=== PATIENT | male | born 1990 | race African-American/Black ===

== ENCOUNTER 2021-08-25 20:16 | Observation (INO) | payer OTHER ==
[2021-08-25] MEDS ORDERED: SODIUM CHLORIDE 0.9% 1,000 ML IV STA (20:35)
[2021-08-25] MEDS ORDERED: SODIUM CHLORIDE 0.9% 1,000 ML with THIAMINE 100 MG, FOLIC ACID 1 MG IV ONE ×3 (20:36)
--- NOTE | 2021-08-25 20:39 | ED ---
General Adult HPI - General Chief complaint: Alcohol Stated complaint: ETOH Time Seen by Provider: 08/25/21 20:30 Source: EMS, RN notes reviewed, old records reviewed Mode of arrival: EMS Limitations: altered mental status (Patient intoxicated and obtunded) - History of Present Illness Initial comments: Patient brought in by EMS for acute alochol intoxication. Patient is arousable but obtunded. He does open his eyes on command. He is moving all extremities. Vital signs are stable. There is vomitus on his T-shirt. There is no evidence of trauma to his head. Per EMS patient is here on business and has been drinking heavily today. -: hour(s) Severity scale (1-10): 0 Associated Symptoms: denies other symptoms Treatments Prior to Arrival: other (iv) - Related Data Allergies Allergy/AdvReac Type Severity Reaction Status Date / Time Unable to Assess Allergy Verified 08/25/21 20:29 Review of Systems ROS Statement: Those systems with pertinent positive or pertinent negative responses have been documented in the HPI. ROS Other: All systems not noted in ROS Statement are negative. Past Medical History Past Medical History: Unable to Obtain History of Any Multi-Drug Resistant Organisms: Unobtainable Past Surgical History: Unable to Obtain Past Psychological History: Unable to Obtain Smoking Status: Unknown if ever smoked Past Alcohol Use History: Unable to Obtain Past Drug Use History: Unable to Obtain - Past Family History Mother Family Medical History: Unable to Obtain (due to mental status) General Exam Limitations: altered mental status General appearance: obtunded Head exam: Present: atraumatic, normocephalic, normal inspection Eye exam: Present: PERRL, other (Unable to assess extraocular eye movements). Absent: scleral icterus, conjunctival injection, periorbital swelling, periorbital tenderness ENT exam: Present: mucous membranes moist Neck exam: Present: normal inspection. Absent: tenderness Respiratory exam: Present: normal lung sounds bilaterally. Absent: respiratory distress, accessory muscle use Cardiovascular Exam: Present: regular rate, normal rhythm GI/Abdominal exam: Present: soft. Absent: distended, tenderness, rigid Extremities exam: Present: normal inspection, normal capillary refill. Absent: pedal edema Neurological exam: Present: other (Responsive to verbal stimuli) Expanded Patient oriented to: Present: person Cranial nerves: Gag Reflex: Normal Motor strength exam: RUE: 4, LUE: 5, RLE: 4, LLE: 5 Eye Response: (3) open to voice Motor Response: (6) obeys commands Verbal Response: (1) no verbal response Jonatan Total: 10 (Patient following simple commands) Skin exam: Present: warm, dry, normal color. Absent: cyanosis, diaphoretic, pallor Course Vital Signs 08/25/21 08/25/21 20:27 21:43 Temperature 98.2 F Pulse Rate 85 84 Respiratory 18 16 Rate Blood Pressure 116/80 106/76 O2 Sat by Pulse 94 L 97 Oximetry Medical Decision Making - Medical Decision Making 30-year-old male presents via EMS with acute alcohol intoxication. Patient is obtunded and is not answering questions. He is moving all 4 extremities, no evidence of trauma to the head. Alcohol level is 256, electrolytes are unremarkable, hemoglobin and hematocrit are stable. CT head negative for any mass or intracranial hemorrhage. I am unsure of the patient's medical history and whether his symptoms are solely related to his alcohol intoxication, he will be admitted to the hospital for acute alcohol intoxication and altered mental status. - Lab Data Result diagrams: 08/25/21 21:41 08/25/21 21:41 Lab Results 08/25/21 08/25/21 Range/Units 21:41 21:41 WBC 6.0 (3.8-10.6) k/uL RBC 4.71 (4.30-5.90) m/uL Hgb 14.0 (13.0-17.5) gm/dL Hct 43.8 (39.0-53.0) % MCV 93.1 (80.0-100.0) fL MCH 29.8 (25.0-35.0) pg MCHC 32.0 (31.0-37.0) g/dL RDW 12.0 (11.5-15.5) % Plt Count 204 (150-450) k/uL MPV 7.6 Neutrophils % 55 % Lymphocytes % 38 % Monocytes % 3 % Eosinophils % 2 % Basophils % 1 % Neutrophils # 3.3 (1.3-7.7) k/uL Lymphocytes # 2.3 (1.0-4.8) k/uL Monocytes # 0.2 (0-1.0) k/uL Eosinophils # 0.1 (0-0.7) k/uL Basophils # 0.1 (0-0.2) k/uL Sodium 140 (137-145) mmol/L Potassium 3.8 (3.5-5.1) mmol/L Chloride 105 (98-107) mmol/L Carbon Dioxide 25 (22-30) mmol/L Anion Gap 10 mmol/L BUN 14 (9-20) mg/dL Creatinine 1.00 (0.66-1.25) mg/dL Est GFR (CKD-EPI)AfAm >90 (>60 ml/min/1.73 sqM) Est GFR (CKD-EPI)NonAf >90 (>60 ml/min/1.73 sqM) Glucose 101 H (74-99) mg/dL Calcium 8.2 L (8.4-10.2) mg/dL Magnesium 2.0 (1.6-2.3) mg/dL Serum Alcohol 256 H* mg/dL Disposition Clinical Impression: Alcoholic intoxication, Altered mental status Disposition: ADMITTED IP TO THIS [facility] Decision Date: 08/25/21 Decision Time: 22:11
[2021-08-25 21:50] LABS: Basophils # (A) 0.1 k/uL (0-0.2); Basophils % (A) 1 %; Eosinophils # (A) 0.1 k/uL (0-0.7); Eosinophils % (A) 2 %; HCT 43.8 % (39.0-53.0); Lymphocytes # (A) 2.3 k/uL (1.0-4.8); Lymphocytes % (A) 38 %; MCH 29.8 pg (25.0-35.0); MCV 93.1 fL (80.0-100.0); Mean Platelet Volume 7.6; Monocytes # (A) 0.2 k/uL (0-1.0); Monocytes % (A) 3 %; Neutrophils # (A) 3.3 k/uL (1.3-7.7); Neutrophils % (A) 55 %; Platelet Count 204 k/uL (150-450); RBC 4.71 m/uL (4.30-5.90)
[2021-08-25 22:01] LABS: African American GFR (CKD) >90 (>60 ml/min/1.73 sqM); Anion Gap 10 mmol/L; Blood Urea Nitrogen 14 mg/dL (9-20); Calcium 8.2 mg/dL (8.4-10.2); Carbon Dioxide 25 mmol/L (22-30); Chloride 105 mmol/L (98-107); Glucose 101 mg/dL (74-99); Non-African American GFR(CKD) >90 (>60 ml/min/1.73 sqM); Potassium 3.8 mmol/L (3.5-5.1); Sodium 140 mmol/L (137-145)
[2021-08-25 22:07] LABS: Alcohol 256 mg/dL
--- NOTE | 2021-08-25 22:17 | CT ---
EXAMINATION TYPE: CT brain wo con DATE OF EXAM: 08/25/2021 COMPARISON: None HISTORY: ETOH CT DLP: 1178.4 mGycm Automated exposure control for dose reduction was used. Ventricles have normal size. There is no mass effect or midline shift. No sign of intracranial hemorr ross. Calvarium is intact. IMPRESSION: Negative unenhanced head CT scan
[2021-08-25] MEDS ORDERED: ACETAMINOPHEN TAB 325 MG TAB PO PRN (22:31)
[2021-08-25] MEDS ORDERED: ONDANSETRON 4 MG/2 ML VIAL IVP PRN (22:31)
[2021-08-25] MEDS ORDERED: NALOXONE 0.4 MG/ML 1 ML VIAL IV PRN (22:31)
--- NOTE | 2021-08-26 01:38 | P.HPIM ---
History of Present Illness H&P Date: 08/25/21 Patient is a 30-year-old male with a known PMH who was brought into the emergency room for alcohol intoxication. The patient was obtunded at the time of interview and no history could thereby be obtained. The patient would open eyes and follow basic commands. As further ED provider and the EMS do cumentation, the patient who was reportedly not a daily drinker drank more than usual tonight with his friends. There was no reports of trauma or falls. CT brain in the emergency room was unremarkable. Laboratory evaluation revealed a serum alcohol level of 256. Review of systems: Pertinent positives and negatives as discussed in HPI, a complete review of systems was performed and all other systems are negative. Physical examination: General: non toxic, no distress, appears at stated age, obese Derm: no unusual rashes/lesions no unusual ecchymoses, warm, dry Head: atraumatic, normocephalic, symmetric Eyes: Anicteric sclera, pupils equal round reactive to light ENT: Nose and ears atraumatic Neck: No thyromegaly, no cervical lymphadenopathy, trachea midline, supple Mouth: no lip lesion Cardiovascular: S1S2 reg, no murmur, positive posterior tibial pulse bilateral, no edema, capillary refill less than 2 seconds Lungs: CTA bilateral, no rhonchi, no rales , no accessory muscle use Abdominal: soft, no guarding, no appreciable organomegaly Ext: no gross muscle atrophy, moving all extremities, no contractures, Neuro: Unable to fully assess, opens eyes, following basic commands, moving all extremities Assessment/plan EtOH intoxication -Thiamine -Fall, aspiration precautions -CIWA protocol -IVFs -Monitor electrolytes DVT prophylaxis -Heparin subq The patient is admitted with an anticipated less than 2 midnight stay for evaluation of EtoH CODE STATUS: Full Code Discussed with: Patient Anticipated discharge date: in am Anticipated discharge place: Home Past Medical History Past Medical History: Unable to Obtain History of Any Multi-Drug Resistant Organisms: Unobtainable Past Surgical History: Unable to Obtain Past Psychological History: Unable to Obtain Smoking Status: Unknown if ever smoked Past Alcohol Use History: Unable to Obtain Past Drug Use History: Unable to Obtain - Past Family History Mother Family Medical History: Unable to Obtain (due to mental status) Medications and Allergies Allergies Allergy/AdvReac Type Severity Reaction Status Date / Time Unable to Assess Allergy Verified 08/25/21 20:29 Physical Exam Vitals: Vital Signs Temp Pulse Resp BP Pulse Ox 08/25/21 21:43 84 16 106/76 97 08/25/21 20:27 98.2 F 85 18 116/80 94 L Intake and Output 08/25/21 08/25/21 08/26/21 14:59 22:59 06:59 Other: Weight 113.398 kg Results CBC & Chem 7: 08/25/21 21:41 08/25/21 21:41 Labs: Abnormal Lab Results - Last 24 Hours (Table) 08/25/21 Range/Units 21:41 Glucose 101 H (74-99) mg/dL Calcium 8.2 L (8.4-10.2) mg/dL Serum Alcohol 256 H* mg/dL
[2021-08-26] MEDS ORDERED: SODIUM CHLORIDE 0.9% 1,000 ML IV SCH (01:45)
[2021-08-26 07:56] VITALS: BP 121/81; PULSE 80; RESP 18; TEMP 98.4
[2021-08-26] MEDS ORDERED: HEPARIN SODIUM,PORCINE/PF 5,000 UNIT/0.5 ML SYRINGE SQ SCH (08:00)
--- NOTE | 2021-08-26 08:27 | P.DS ---
Providers Date of admission: 08/26/21 00:22 Expected date of discharge: 08/26/21 Attending physician: Barron Mtz MD Primary care physician: Stated None Hospital Course: Discharge Diagnosis: Acute Alcohol Inotxication Hospital Course: Patient is a 30-year-old male with no known past medical history who came into the ER after being found with decreased responsiveness in the hallway of his hotel. He has been here from [place] and [employer] and was intoxicated. He does not normally drink. In the ER he was significantly obtunded and was found have an elevated alcohol level. Is admitted for observation as they were unable to determine the exact timing of his last drink. By the next morning he was alert and oriented 3 and asking to be discharged. Follow-up: Primary care physician within 2-3 days. Patient seen and examined at bedside. Feeling well. No complaints currently. Does not normally drink on a daily basis. Vital signs reviewed and stable. General: non toxic, no distress, appears at stated age Derm: warm, dry Head: atraumatic, normocephalic, symmetric Eyes: EOMI, no lid lag, anicteric sclera Mouth: no lip lesion, mucus membranes moist Cardiovascular: S1S2 reg, no murmur, positive posterior tibial pulse bilateral, Lungs: CTA bilateral, no rhonchi, no rales , no accessory muscle use Psych: Alert, oriented 3, appropriate affect A total of 20 minutes of time were spent preparing this complex discharge summary . Plan - Discharge Summary Follow up Appointment(s)/Referral(s): None,Stated [Primary Care Provider] - 1-2 days Activity/Diet/Wound Care/Special Instructions: Activity: as tolerated Diet: regular Discharge Disposition: HOME SELF-CARE
[2021-08-26 08:42] LABS: HCT 46.6 % (39.6-50.0); HGB 14.9 g/dL (13.0-17.0); MCH 29.2 pg (27.0-32.0); MCV 91.4 fL (80.0-97.0); NRBC Per 100 WBC 0 /100 WBCS (0.0-0.0); Platelet Count 221 X 10*3/uL (140-440); WBC 6.22 X 10*3/uL (4.50-10.00)
[2021-08-26 08:56] LABS: African American GFR (CKD) 122.1 (60.0-200.0); Albumin 4.5 g/dL (3.8-4.9); Albumin/Globulin Ratio 1.94 (1.60-3.17); Anion Gap 12.3 mmol/L (10.00-18.00); BUN/Creat Ratio 10.22 Ratio (12.00-20.00); Blood Urea Nitrogen 9.9 mg/dL (9.0-27.0); Calcium 8.7 mg/dL (8.7-10.3); Carbon Dioxide 23.6 mmol/L (20.0-27.5); Globulin 2.3 g/dL (1.6-3.3); Non-African American GFR(CKD) 105.3 (60.0-200.0); Potassium 4.3 mmol/L (3.5-5.5); Total Bilirubin 1.8 mg/dL (0.30-1.20); Total Protein 6.8 g/dL (6.2-8.2)
== END 2021-08-26 09:05 | disposition home or self-care (01) ==
LOC: EC 20:16 → 6NMEDSUR 08-26 00:22
PROVIDERS: ADMIT Internal Medicine; ATTEND Internal Medicine
DX: F10.129 Alcohol abuse with intoxication, unspecified (principal); Y90.8 Blood alcohol level of 240 mg/100 ml or more; E66.9 Obesity, unspecified; Z68.31 Body mass index [BMI] 31.0-31.9, adult
CPT/HCPCS: 96361; 96365; 96366; 99285; 36415; 80053; 80048; 83735 ×2; 85025; 85027; 80320; 70450; G0378; J3411